=== PATIENT | male | born 1935 | race Caucasian/White ===

== ENCOUNTER → 2018-10-14 | Outpatient (CLI) | payer MEDICARE | END | disposition home or self-care (01) | LOC: CFH 14:33 | PROVIDERS: ATTEND Family Medicine | DX: Z12.2 Encounter for screening for malignant neoplasm of respiratory organs (principal); J84.9 Interstitial pulmonary disease, unspecified; J92.9 Pleural plaque without asbestos; J43.9 Emphysema, unspecified; I25.10 Atherosclerotic heart disease of native coronary artery without angina pectoris; M48.54XA Collapsed vertebra, not elsewhere classified, thoracic region, initial encounter for fracture; R91.1 Solitary pulmonary nodule; Z87.898 Personal history of other specified conditions; Z87.891 Personal history of nicotine dependence | CPT/HCPCS: G0297 ==

== ENCOUNTER → 2018-11-17 | Outpatient (CLI) | payer MEDICARE | END | disposition home or self-care (01) | LOC: CVU 11:00 | PROVIDERS: ATTEND Internal Medicine Cardiovascular Disease | DX: I08.3 Combined rheumatic disorders of mitral, aortic and tricuspid valves (principal); I25.10 Atherosclerotic heart disease of native coronary artery without angina pectoris; I71.4 Abdominal aortic aneurysm, without rupture; I27.20 Pulmonary hypertension, unspecified | CPT/HCPCS: 93306 ==

== ENCOUNTER 2018-11-19 11:32 | Outpatient (CLI) | payer MEDICARE ==
[~2018-11-19 11:32] MED LIST: REGADENOSON 0.4 MG/5 ML SYRINGE ONE
== END 2018-11-19 23:59 | disposition home or self-care (01) ==
LOC: CFH 11:32
PROVIDERS: ATTEND Internal Medicine Cardiovascular Disease
DX: Z01.810 Encounter for preprocedural cardiovascular examination (principal); I25.9 Chronic ischemic heart disease, unspecified; I25.10 Atherosclerotic heart disease of native coronary artery without angina pectoris
CPT/HCPCS: 78452; 93017; A9502; J2785

== ENCOUNTER → 2018-12-08 | Outpatient (CLI) | payer MEDICARE | END | disposition home or self-care (01) | LOC: CFH 11:34 | PROVIDERS: ATTEND Internal Medicine | DX: J43.9 Emphysema, unspecified (principal); R91.1 Solitary pulmonary nodule; J47.9 Bronchiectasis, uncomplicated; J92.9 Pleural plaque without asbestos; J98.4 Other disorders of lung; M48.54XA Collapsed vertebra, not elsewhere classified, thoracic region, initial encounter for fracture; N28.1 Cyst of kidney, acquired | CPT/HCPCS: 71250 ==

== ENCOUNTER → 2018-12-23 | Outpatient (CLI) | payer MEDICARE ==
[~2018-12-23] MED LIST changes: +ALBU90AE INH; +ASPI325T17 PO; +ATOR40TA78 PO; +B CO1TAB14 PO; +CHOL500015 PO; +FOLI-17 PO; +ISOS30TA8 PO; +NITR0.4T28 SL; +OMEP-110 PO; +PROP160C PO; -REGADENOSON 0.4 MG/5 ML SYRINGE ONE; +SALM50DI INH; +SULF500T36 PO; +UMEC62.5 INH
[2018-12-23 12:21] LABS: MICROSCOPIC AUTO
== END | disposition home or self-care (01) ==
LOC: STAR 10:56
PROVIDERS: ATTEND Urology
DX: Z01.818 Encounter for other preprocedural examination (principal); N35.919 Unspecified urethral stricture, male, unspecified site; Z85.51 Personal history of malignant neoplasm of bladder
CPT/HCPCS: 81001; 87086; 93005

== ENCOUNTER 2018-12-31 09:06 | Day surgery (SDC) | payer MEDICARE ==
[2018-12-23 11:42] VITALS: BP 153/81
[~2018-12-31] VITALS: Ht 177.8 cm; Wt 90.8 kg
[2018-12-31] MEDS ORDERED: LACTATED RINGERS 1,000 ML IV SCH (09:23)
[2018-12-31] MEDS ORDERED: LIDOCAINE-MPF 2%, 2ML ONE (09:39)
[2018-12-31] MEDS ORDERED: LIDOCAINE-MPF 1%, 2ML INFIL ONE (10:00)
[2018-12-31] MEDS ORDERED: PROPOFOL 50 ML ONE ×2 (10:04→10:51)
[2018-12-31] MEDS ORDERED: FENTANYL PF 250 MCG/5ML ONE (10:04)
[2018-12-31] MEDS ORDERED: ROCURONIUM 10 MG/ML,10ML ONE (10:12)
[2018-12-31] MEDS ORDERED: MITOMYCIN 40 MG in STERILE WATER 40 ML INTVESIC ONE (10:30)
[2018-12-31] MEDS ORDERED: INDIGO CARMINE 0.8%, 5ML ONE (10:58)
[2018-12-31] MEDS ORDERED: FENTANYL PF 100 MCG/2ML IV PRN (11:00)
[2018-12-31] MEDS ORDERED: hydrALAzine 20 MG/ML, 1ML IV PRN (11:00)
[2018-12-31] MEDS ORDERED: OXYcodone 5 MG/5 ML ORAL.SOL UDC PO PRN (11:00)
[2018-12-31] MEDS ORDERED: ACETAMINOPHEN 325 MG TABLET PO PRN (11:00)
[2018-12-31] MEDS ORDERED: MORPHINE SULFATE 4 MG/ML, 1ML IVPush PRN (11:00)
[2018-12-31] MEDS ORDERED: ONDANSETRON ODT 8 MG PO PRN (11:00)
[2018-12-31] MEDS ORDERED: MIDAZOLAM 1 MG/ML, 2ML IV PRN (11:00)
[2018-12-31] MEDS ORDERED: EPHEDRINE 50 MG/ML, 1ML IM PRN (11:00)
[2018-12-31] MEDS ORDERED: ONDANSETRON 2MG/ML, 2ML IV PRN (11:00)
[2018-12-31] MEDS ORDERED: EPHEDRINE 50 MG/ML, 1ML IVPush PRN (11:00)
[2018-12-31] MEDS ORDERED: ONDANSETRON 2MG/ML, 2ML ONE (11:22)
[2018-12-31] MEDS ORDERED: SUGAMMADEX 200 MG/2 ML IVPush ONE (11:22)
[2018-12-31] MEDS ORDERED: PROPOFOL 10 MG/ML, 20ML ONE (11:22)
[2018-12-31] MEDS ORDERED: ACETAMINOPHEN 650 MG/20.3 ML UDC ONE (12:05)
== END 2018-12-31 16:10 | disposition home or self-care (01) ==
LOC: OUT 09:06
PROVIDERS: ATTEND Urology
DX: C67.9 Malignant neoplasm of bladder, unspecified (principal); N35.919 Unspecified urethral stricture, male, unspecified site; I10 Essential (primary) hypertension; E78.00 Pure hypercholesterolemia, unspecified; Z88.8 Allergy status to other drugs, medicaments and biological substances
CPT/HCPCS: 51720; 52235; 74420; 88307; C1769; J2405; J2704; J3010; J7120; J9280

== ENCOUNTER → 2020-02-04 | Outpatient (CLI) | payer MEDICARE | END | disposition home or self-care (01) | LOC: CVU 09:43 | PROVIDERS: ATTEND Internal Medicine Cardiovascular Disease | DX: I08.3 Combined rheumatic disorders of mitral, aortic and tricuspid valves (principal); I70.202 Unspecified atherosclerosis of native arteries of extremities, left leg; I71.4 Abdominal aortic aneurysm, without rupture; I25.10 Atherosclerotic heart disease of native coronary artery without angina pectoris | CPT/HCPCS: 93306; 93356; 93978 ==

== ENCOUNTER → 2020-06-07 | Outpatient (CLI) | payer MEDICARE | END | disposition home or self-care (01) | LOC: CFH 11:59 | PROVIDERS: ATTEND Internal Medicine | DX: R91.8 Other nonspecific abnormal finding of lung field (principal); J43.2 Centrilobular emphysema; J84.9 Interstitial pulmonary disease, unspecified | CPT/HCPCS: 71250 ==

== ENCOUNTER 2021-01-14 16:48 | Observation (INO) | payer MEDICARE ==
[~2021-01-14] VITALS: Ht 172.7 cm; Wt 87.0 kg
[~2021-01-14 16:48] MED LIST changes: -FOLI-17 PO; +FOLI1TAB32 PO; -SALM50DI INH; +SALM50DI2 INH
--- NOTE | 2021-01-14 17:16 | NUR ---
BIBA AFTER HAVING SLURRED SPEECH AND CONFUSION THAT LASTING 20 MINUTES. PER FAMILY PT RETURNED TO BASELINE. PT W/ HX OF MULTIPLE TIA, PT ATTACHED TO MONITORS. VSS. NADN. FAMILY AT BEDSIDE. AWAITNG ORDERS.
[2021-01-14] MEDS ORDERED: SODIUM CHLORIDE FLUSH 10ML SYR IVF ONE (17:30)
--- NOTE | 2021-01-14 17:45 | NUR ---
PT TO BATHROOM WITH UNSTEADY GAIT. PT DROPPED URINE SAMPLE IN TOLIET WHILE VOIDING. UNAB;E TO USE. WILL ATTEMPT OBTAINING UA AT ANOTHER TIME
[2021-01-14 17:54] LABS: BASOPHILS % (AUTO) 1 % (0-1); EOSINOPHILS % (AUTO) 3 % (1-7); LYMPHOCYTES % (AUTO) 31 % (22-44); MEAN CORPUSCULAR HEMOGLOBIN 31.5 pg (27.5-34.5); MEAN CORPUSCULAR HGB CONC 33.3 g/dL (33.2-36.2); MEAN PLATELET VOLUME 8.7 fL (7.4-10.4); MONOCYTES % (AUTO) 10 % (2-9); NEUTROPHILS % (AUTO) 55 % (42-75); PLATELET COUNT 125 x10^3/uL (130-400); RED BLOOD COUNT 3.37 x10^6/uL (4.38-5.82); RED CELL DISTRIBUTION WIDTH 14.2 % (9.4-14.8)
--- NOTE | 2021-01-14 17:57 | NUR ---
PT TO CT
--- NOTE | 2021-01-14 18:02 | NUR ---
PT BACK FROM CT. VSS. NADN.TO BE ADMITTED. FAMILY AT BEDSIDE.
[2021-01-14 18:05] LABS: ALANINE AMINOTRANSFERASE 23 U/L (12-78); ALBUMIN 3.3 g/dL (3.4-5.0); ANION GAP 7 mmol/L (5-15); CALCIUM 8.2 mg/dL (8.5-10.1); CHLORIDE 109 mmol/L (98-107)
[2021-01-14 18:11] LABS: ALKALINE PHOSPHATASE 118 U/L (45-117); BILIRUBIN,TOTAL 0.4 mg/dL (0.2-1.0); CREATININE 2.09 mg/dL (0.7-1.3); TOTAL PROTEIN 7.1 g/dL (6.4-8.2); TROPONIN I < 0.015 ng/mL (0.000-0.045)
--- NOTE | 2021-01-14 18:54 | NUR ---
REPORT RECIEVED FROM KENIA GARCES
[2021-01-14 19:21] LABS: MICROSCOPIC AUTO
[2021-01-14] MEDS ORDERED: SODIUM CHLORIDE FLUSH 10ML SYR IVF PRN (19:30)
[2021-01-14] MEDS ORDERED: CEFTRIAXONE 1,000 MG in DEXTROSE 5% 50 ML IVPB ONE (19:30)
--- NOTE | 2021-01-14 19:53 | NUR ---
ERP STATES NO BLOOD CULTURES BEFORE ABX ADMIN
[2021-01-14] MEDS ORDERED: NITROGLYCERIN SINGLE TAB 0.4 MG SL PRN (20:00)
[2021-01-14] MEDS ORDERED: ACETAMINOPHEN 650 MG/20.3 ML UDC PO PRN (20:00)
[2021-01-14] MEDS ORDERED: SENNA/DOCUSATE TABLET PO PRN (20:00)
[2021-01-14] MEDS ORDERED: BISACODYL 10 MG SUPP PR PRN (20:00)
[2021-01-14] MEDS ORDERED: ENALAPRILAT 1.25 MG/ML, 2ML IV PRN (20:00)
[2021-01-14] MEDS ORDERED: POLYETHYLENE GLYCOL 17 GM PACKET PO PRN (20:00)
--- NOTE | 2021-01-14 20:29 | NUR ---
REPORT GIVEN TO CORRINE AQUINO
[2021-01-14] MEDS ORDERED: SALMETEROL INH 50MCG/INH DISK.W.DEV INH SCH (21:00)
[2021-01-14] MEDS ORDERED: ATORVASTATIN 40 MG TABLET PO SCH (21:00)
[2021-01-14] MEDS ORDERED: IPRATROPIUM 0.5 MG/2.5 ML INHA NPPB SCH (21:30)
[2021-01-14] MEDS: OMEPRAZOLE 20 MG CAPSULE.DR PO SCH (22:00)
[2021-01-14] MEDS: ALBUTEROL/IPRATROPIUM 2.5MG/0.5MG, 3 ML HHN SCH (22:20)
[2021-01-15 00:33] VITALS: BP 143/73
[2021-01-15 02:14] VITALS: BP 165/75
[2021-01-15] MEDS: ALBUTEROL/IPRATROPIUM 2.5MG/0.5MG, 3 ML HHN SCH ×2 (03:25→07:55)
[2021-01-15 05:32] LABS: CHOL/HDL RATIO 2.6; LDL/HDL RATIO 1.2 (0.5-3.0)
[2021-01-15 06:58] VITALS: BP 153/69
[2021-01-15] MEDS: OMEPRAZOLE 20 MG CAPSULE.DR PO SCH (08:26)
[2021-01-15] MEDS ORDERED: MULTIVITS,STRESS FORMULA 1 TABLET PO SCH (09:00)
[2021-01-15] MEDS ORDERED: PROPRANOLOl 80 MG CAP.SA.24H PO SCH (09:00)
[2021-01-15] MEDS ORDERED: FOLIC ACID 1 MG TABLET PO SCH (09:00)
[2021-01-15] MEDS ORDERED: TEMPLATE NON-FORMULARY MED. (Umeclidinium Bromide (Incruse Ellipta) 1 PUFF) INH SCH (09:00)
[2021-01-15] MEDS ORDERED: ISOSORBIDE MONONITRATE ER 30 MG TABLET PO SCH (09:00)
[2021-01-15] MEDS ORDERED: CHOLECALCIFEROL 5,000u TAB PO SCH (09:00)
[2021-01-15] MEDS ORDERED: ASPIRIN 325 MG TABLET PO SCH (09:00)
[2021-01-15 13:39] VITALS: BP 103/60
[2021-01-15] MEDS ORDERED: CEFD300C37 PO (14:03)
[2021-01-15] MEDS ORDERED: SULFASALAZINE 500 MG TABLET PO SCH (21:00)
== END 2021-01-15 15:05 | disposition home or self-care (01) ==
LOC: ED 17:59 → EDIP 19:43 → INTOOBSV 19:43 → 4EST 20:50 → DCLOUNGE 01-15 14:57
PROVIDERS: ADMIT Family Medicine; ATTEND Family Medicine
DX: G45.9 Transient cerebral ischemic attack, unspecified (principal); D69.6 Thrombocytopenia, unspecified; N39.0 Urinary tract infection, site not specified; I25.5 Ischemic cardiomyopathy; I71.4 Abdominal aortic aneurysm, without rupture; E78.5 Hyperlipidemia, unspecified; J44.9 Chronic obstructive pulmonary disease, unspecified; N40.0 Benign prostatic hyperplasia without lower urinary tract symptoms; K21.9 Gastro-esophageal reflux disease without esophagitis; I12.9 Hypertensive chronic kidney disease with stage 1 through stage 4 chronic kidney disease, or unspecified chronic kidney disease; N18.30 Chronic kidney disease, stage 3 unspecified; D63.1 Anemia in chronic kidney disease; E78.00 Pure hypercholesterolemia, unspecified; I25.2 Old myocardial infarction; Z85.51 Personal history of malignant neoplasm of bladder; Z79.82 Long term (current) use of aspirin; Z79.899 Other long term (current) drug therapy; Z87.891 Personal history of nicotine dependence
CPT/HCPCS: 36415; 70450; 70551; 71045; 80053; 80061; 81001; 83735; 83880; 84100; 84484; 85025; 87086; 93005; 93306; 93880; 94640; 96365; 99285; G0378; J0696; 96374

== ENCOUNTER → 2021-03-14 | Outpatient (CLI) | payer MEDICARE ==
[~2021-03-14] MED LIST changes: +CEFD300C37 PO
== END | disposition home or self-care (01) ==
LOC: CFH 12:18
PROVIDERS: ATTEND Internal Medicine Cardiovascular Disease
DX: I25.10 Atherosclerotic heart disease of native coronary artery without angina pectoris (principal)
CPT/HCPCS: 78452; 93017; A9502; J2785